=== PATIENT | male | born 1970 | race African-American/Black ===

== ENCOUNTER 2021-10-24 17:43 | Emergency (ER) | payer BC ==
--- OUTSIDE RECORDS SUMMARY | 2021-10-24 17:45 | XMS REPORT | Continuity of Care Document ---
:1970 Author Organization [facility] t Address [address] [place] [address] Care Team Providers Name Role Phone Unavailable Unavailable Unavailable Payers Payer Name Policy Type Policy Number Effective Date Expiration Date S ource Problems This patient has no known problems. Allergies, Adverse Reactions, Alerts Allergy Allergy Status Severity Reaction(s) Onset Inactive Treating Comm ents Source Name Type Date Date Clinician No Known DA Active U 2019-10 [facility] Allergie 11-23 [facility] s 00:00: d 00 [facility] No Known DA Active U 2019-10 [facility] Allergie 11-23 [facility] s 00:00: d 00 [facility] Medications This patient has no known medications. Procedures This patient has no known procedures. Encounters Start End Encounter Admission Attending Care Care Encounter Source Date/Time Date/Time Type Type Clinicians Facility Department ID 2020-09-22 Inpatient [facility] DOC [id number] [facility] 15:39:[id number] [facility] Results Test Description Test Time Test Comments Results Result Comments Source C REACTIVE PROTEIN 2020-10-05 03:39:00 Test Item Value Reference Range Interpretation Comme nts C REACTIVE PROTEIN (test code = CRP) 0.562 MG/DL 0.000-0.3 H ANTINUCLEAR ANTIBODIES [id number] 03:39:00 Test Item Value Reference Range Interpretation Comments LAVERNE TITER (test code NEGATIVE REFEREN CE INTERVAL = ANATITR) NEGATIVE <1:80BORDERLINE 1:80POSITIVE >1:80 C REACTIVE [id number] 17:41:00 Test Item Value Reference Range Interpretation Comments C REACTIVE PROTEIN (test code = 0.562 MG/DL 0.000-0.3 H CRP) ANTINUCLEAR ANTIBODIES [id number] 17:41:00 Test Item Value Reference Range Interpretation Comments LAVERNE TITER (test code = ANATITR) C REACTIVE [id number] 18:10:00 Test Item Value Reference Range Interpretation Comments C REACTIVE PROTEIN (test code = 0.562 MG/DL 0.000-0.3 H CRP) ANTINUCLEAR ANTIBODIES [id number] 18:10:00 Test Item Value Reference Range Interpretation Comments LAVERNE TITER (test code = ANATITR) LAVERNE COMMENT (test code = ANACOM) - CT HEAD/BRAIN W/O [id number] 11:06:00 [facility] 1970 Sex: M Name: ABRAHAN OSPINA [facility] : 1970 Age/S: 50 / M [address] [facility] Unit #: [id number] Loc: [place] [address] Phys: Destiney Joseph MD Acct: [id number] Dis Date: Status: ADM IN PHONE #: [phone] Exam Date: 09/24/2020 1045 FAX #: Reason: REPEAT AFTER STROKE EXAMS: CPT: [id number] CT HEAD/BRAIN W/O CONT 68150 EXAM: CT Head without contrast Location code:S17 HISTORY: CVA COMPARISON: MRI brain 09/23/2020; CT study of 09/23/2020 reviewed TECHNIQUE: Multiple transaxial images of the brain were obtained without intravenous contrast using 5mm slices. CT imaging performed at this location utilizes radiation dose optimization techniques which include one or more of the following: -Automated exposure control -Adjustment of the mA and/or kV according to patient size -Use of iterative reconstruction technique CT Radi ation Dose DLP 804 mGy-cm FINDINGS: Again noted are areas of low attenuation involvingthe right temporal, parietal, and frontal lobes.. Hypoattenuation is noted within the right parietal lobe in the infarcted region. There is no mass, mass effect, midline shift or extra- axial fluid collection.Brain parenchymal volume and ventricular caliber are within normal limits. Styles-white differentiation is maintained. Paranasal sinuses, mastoid air cells and visualized orbital contents are within normal limits. Osseous structures are within normal limits. IMPRESSION: Stable evolving infarct of the right temporal, parietal, and frontal lobes with an area of petechial hemorrhage centered at the latia-insular temporal lobe. There is no interval change. at 1106 Reported and signed by: Aryan Laurent M.D. CC: Destiney Joseph MD; Fide Cueto MD; Wilman Torres MD Technologist:Torri Hussein RT(R)(CT) CTDI: DLP: Trnscb Date/Time: 09/24/2020 (1106) [email or web address] Orig Print D/T: S: 09/24/2020 (7080) PAGE 1 Signed Report SED [id number] 23:42:00 Test Item Value Reference Range Interpretation Comments SED RATE (test code = SEDW) 62 mm/hr 0-20 H - CT HEAD/BRAIN W/O [id number] 23:36:00 [facility] 1970 Sex: M Name: [facility] 1970 Age/S: 50 / M [address] Unit #: [id number] Loc: [place] [address] Phys: Roger Schumacher MD Acct: [id number] Dis Date: Status: ADM IN PHONE #: [phone] Exam Date: 09/23/2020 2787 FAX #: Reason: stroke EXAMS: CPT: [id number] CT HEAD/BRAIN W/O CONT 35263 EXAM: CT Head without contrast Location code:J9 HISTORY: CVA COMPARISON: MRI brain 09/23/2020 TECHNIQUE: Multiple transaxial images of the brain were obtained without intravenous contrast using 5mm slices. CT imaging performed at this location utilizes radiation dose optimization techniques which include one or more of the following: -Automated exposure control -Adjustment of the mA and/or kV according to patientsize -Use of iterative reconstruction technique CT Radiation Dose DLP mGy-cm FINDINGS: Again noted are areas of low attenuation involving the right temporal, parietal, and frontal lobes.. Hypoattenuation is noted within the right parietal lobe in the infarcted region. There is no mass, mass effect, midline shift or extra-axial fluid collection.Brain parenchymal volume and ventricular caliber are within normal limits. Paranasal sinuses,mastoid air cells and visualized orbital contents are within normal limits. Osseous structures are within normal limits. IMPRESSION: Again noted is an evolving infarct of the right temporal, parietal, and frontal lobes with an area of petechial hemorrhagecentered at the periinsular temporal lobe. Attention on follow-up. at 2336 Reported and signed by: Oleksandr Car M.D. CC: Fide Cueto MD; Roger Schumacher MD; Wilman Torres MD Technologist:Josiane Matias, RT(R)(CT) CTDI: DLP: Trnscb Date/Time: 09/23/2020 (4376) [email or web address] Orig Print D/T: S: 09/23/2020 (5611) PAGE 1 Signed Report- CT HEAD/BRAIN W/O [id number] 23:36:00 [facility] 1970 Sex: M Name: ABRAHAN OSPINA [facility] : 1970 Age/S: 50 / M [address] [address] Unit #: [id number] Loc: [place] [address] Phys: Roger Schumacher MD Acct: [id number] Dis Date: Status: ADM IN PHONE #: [phone] Exam Date: 09/23/2020 3826 FAX #: Reason: stroke EXAMS: CPT: [id number] CT HEAD/BRAIN W/O CONT 52500 EXAM: CT Head without contrast Location code:J9 HISTORY: CVA COMPARISON: MRI brain 09/23/2020 TECHNIQUE: Multiple transaxial images of the brain were obtained without intravenous contrast using 5mm slices. CT imaging performed at this location utilizes radiation dose optimization techniques which include one or more of the following: -Automated exposure control -Adjustment of the mA and/or kV according to patientsize -Use of iterative reconstruction technique CT Radiation Dose DLP mGy-cm FINDINGS: Again noted are areas of low attenuation involving the right temporal, parietal, and frontal lobes.. Hypoattenuation is noted within the right parietal lobe in the infarcted region. There is no mass, mass effect, midline shift or extra-axial fluid collection.Brain parenchymal volume and ventricular caliber are within normal limits. Paranasal sinuses,mastoid air cells and visualized orbital contents are within normal limits. Osseous structures are within normal limits. IMPRESSION: Again noted is an evolving infarct of the right temporal, parietal, and frontal lobes with an area of petechial hemorrhagecentered at the periinsular temporal lobe. Attention on follow-up. at 2336 Reported and signed by: Oleksandr Car M.D. CC: Fide Cueto MD; Roger Schumacher MD; Wilman Torres MD Technologist:Josiane Matias, RT(R)(CT) CTDI: DLP: Trnscb Date/Time: 09/23/2020 (5878) [email or web address] Orig Print D/T: S: 09/23/2020 (9869) PAGE 1 Signed ReportCBC W/AUTO [id number] 18:09:00 Test Item Value Reference Range Interpretation Comments WHITE BLOOD CELL (test code = 9.2 K/mm3 3.5-11.0 N WBC) RED BLOOD CELL (test code = 4.83 M/mm3 4.70-6.10 N RBC) HEMOGLOBIN (test code = HGB) 14.5 G/DL 12.3-15.9 N HEMATOCRIT (test code = HCT) 43.6 % 35.8-46.7 N MEAN CELL VOLUME (test code = 90.3 Fl 86.3-98.9 N MCV) MEAN CELL HGB (test code = MCH) 30.0 pg 28.9-34.4 N MEAN CELL HGB CONCETRATION 33.3 G/DL 32.1-34.5 N (test code = MCHC) RED CELL DISTRIBUTION WIDTH 12.8 SD 11.5-14.5 N (test code = RDW) PLATELET COUNT (test code = 282 K/mm3 150-450 N PLT) MEAN PLATELET VOLUME (test code 8.40 fL 7.0-9.6 N = MPV) NEUTROPHIL % (test code = NT%) 70.7 % 40-76 N IMMATURE GRANULOCYTE % (test 0.2 % 0.0-5.0 N code = IG%) LYMPHOCYTE % (test code = LY%) 20.6 % 20.5-51.1 N MONOCYTE % (test code = MO%) 7.9 % 1.7-9.3 N EOSINOPHIL % (test code = EO%) 0.4 % 0.0-6.0 N BASOPHIL % (test code = BA%) 0.2 % 0.0-2.0 N NUCLEATED RBC % (test code = 0.0 /100WBC% 0.0-1.0 N NRBC%) NEUTROPHIL # (test code = NT#) 6.5 K/mm3 1.8-7.6 N IMMATURE GRANULOCYTE # (test 0.02 x10 3/uL 0.00-0.03 N code = IG#) LYMPHOCYTE # (test code = LY#) 1.9 K/mm3 0.6-3.0 N MONOCYTE # (test code = MO#) 0.7 K/mm3 0.2-1.5 N EOSINOPHIL # (test code = EO#) 0.0 K/mm3 0.0-0.4 N BASOPHIL # (test code = BA#) 0.0 K/mm3 0.0-0.2 N NUCLEATED RBC # (test code = 0.0 K/mm3 0.00-0.01 N NRBC#) MANUAL DIFF REQUIRED (test code NO DIFF/SCN CRITERIA = MDIFF) GLYCOSYLATED HEMOGLOBIN [id number] 15:53:00 Test Item Value Reference Range Interpretation Comments GLYCOSYLATED HEMOGLOBIN (HA1C) 5.8 % A1C 0.0-5.7 H (test code = GLYHGB) ESTIMATED AVERAGE GLUCOSE (test 120 MG/DLest code = EAG) BASIC METABOLIC [id number] 12:00:00 Test Item Value Reference Range Interpretation Comments SODIUM (test code = NA) 137 mmol/L 134-147 N POTASSIUM (test code = 4.0 mmol/L 3.4-5.0 N K) CHLORIDE (test code = 102 mmol/L 100-108 N CL) CARBON DIOXIDE (test 29 mmol/L 21-32 N code = CO2) ANION GAP (test code = 6.0 GAP calc 4.0-15.0 N GAP) GLUCOSE (test code = 101 MG/DL 70-110 N GLU) BLOOD UREA NITROGEN 15 MG/DL 7-18 N (test code = BUN) GLOMERULAR FILTRATION >=60 max estimate >60 RATE (test code = GFR) estGFR CREATININE (test code = 0.9 MG/DL 0.8-1.3 N CREAT) CALCIUM (test code = CA) 9.0 MG/DL 8.5-10.1 N LIPID PROFILE (CORONARY RISK)2020-09-23 12:00:00 Test Item Value Reference Range Interpretation Comments TRIGLYCERIDES (test code = TRIG) 111 MG/DL 0-150 N CHOLESTEROL (test code = CHOL) 225 MG/DL 133-200 H CHOLESTEROL/HDL RATIO (test code = 4.41 RATIO >0 CHOLHDL) HDL CHOLESTEROL (test code = HDL) 51 MG/DL 40-59 N NON-HDL CHOLESTEROL (test code = 174 mg/dL <130 H NHDL) LIPOPROTEIN LDL (test code = LDL) 157 MG/DL 0-129 H LDL/HDL (test code = LDL/HDL) 3.07 Ratio 1.48-3.22 Avg N [id number] 12:00:00 Test Item Value Reference Range Interpretation Comments PHOSPHOROUS (test code = PHOS) 3.1 MG/DL 2.5-4.9 N [id number] 12:00:00 Test Item Value Reference Range Interpretation Comments MAGNESIUM (test code = MAG) 2.3 MG/DL 1.8-2.4 N - MRI BRAIN W/O [id number] 10:25:00 [facility] : 1970 Sex: M FAX: [place] [phone] Camps: PM St: ADM FAX: Brittany Torres MD [phone] Name: ABRAHAN OSPINA [facility] : 1970 Age/S: 50/M [address] [address] Unit #: [id number] Loc: [address] [place] [address] Phys: Wilman Torres MD Acct: [id number] Dis Date: Status: ADM IN PHONE #: [phone] Exam Date: 09/23/2020 0982 FAX #: Reason: CVA EXAMS: CPT: [id number] MRI BRAIN W/O CONTRAST 58688 HISTORY: CVA Location: C3 TECHNIQUE: Multiplanar multisequence MR images of thebrain were obtained without intravenous contrast. FINDINGS: There are areas of restricted diffusion compatible with acute infarction involving the right parietal lobe aswell as posterior right temporal lobe and posterior insula with tiny area of recent infarction involving the left cerebellum. There are areas of petechial hemorrhage seen involving the acute infarction in the region of the posterior insula and adjacent cortex. There is no intracranial mass or mass effect. No hydrocephalus. Appropriate flow-voids are present at the skull base. The visualized orbits and sinuses show no significant abnormalities. IMPRESSION: 1. Recent infarction involving the right parietal lobe as well as posterior temporal lobe and posterior insula with tiny area of recent infarction involving the right cerebellum. There are small areas of petechial hemorrhage seen withinthe area of infarction in the region of the posterior insula and adjacent cortex. at 1025 Reported and signed by: Dima Howard M.D. CC:Fide Cueto MD; Wilman Torres MD Technologist: Gulshan Charles, RT(R)(MR) Transcribed Date/Time/By: 09/23/2020 (7805) :[email or web address] Orig Print D/T: S: 09/23/2020 (2239) PAGE 1 Signed ReportGLUCOSE BEDSIDE [id number] 08:02:00 Test Item Value Reference Range Interpretation Comments GLUCOSE BEDSIDE TESTING (test code 108 mg/dL 70-110 N = GLUBED) UA RFLX MICR CULT IF [id number] 08:01:00 Test Item Value Reference Range Interpretation Comments UA COLOR (test code = YELLOW discript YEL/STRAW COLU) UA APPEARANCE (test code CLEAR discript CLEAR = APPU) UA GLUCOSE DIPSTICK (test NEGATIVE mg/dL NEG code = DGLUU) UA BILIRUBIN DIPSTICK NEGATIVE mg/dL NEG (test code = BILU) UA KETONE DIPSTICK (test NEGATIVE mg/dL NEG code = KETU) UA SPECIFIC GRAVITY (test 1.015 SG 1.005-1.030 code = SGU) UA BLOOD DIPSTICK (test 2+ mg/DL NEG A code = PHI) UA PH DIPSTICK (test code 6.5 pH UNITS 5.0-7.0 = RIAZ) UA PROTEIN DIPSTICK (test NEGATIVE mg/dL NEG code = PROU) UA UROBILINIOGEN DIPSTICK 0.2 mg/dL <2.0 (test code = URO) UA NITRITE DIPSTICK (test NEGATIVE SCREEN NEG code = CHRIS) UA LEUKOCYTE ESTERASE NEGATIVE Leuk/mcL NEGATIVE DIPSTICK (test code = LEUU) UA WBC (test code = WBCU) 0-1 #WBC/HPF 0-3 UA RBC (test code = RBCU) 1-3 #RBC/HPF 0-3 UA BACTERIA (test code = NONE SEEN /HPF NONE-TRACE BACU) UA SQUAMOUS CELLS (test TRACE /HPF NONE code = SQU) UA CULTURE NEEDED? (test NO, WBC<10 Criteria Culture CHK code = UACULT) Indication for culture: Suprapubic PainUA RFLX MICR CULT IF INDICATED 2020-09-23 07:49:00 Test Item Value Reference Range Interpretation Comments UA COLOR (test code = COLU) YELLOW discript YEL/STRAW UA APPEARANCE (test code = CLEAR discript CLEAR APPU) UA GLUCOSE DIPSTICK (test NEGATIVE mg/dL NEG code = DGLUU) UA BILIRUBIN DIPSTICK (test NEGATIVE mg/dL NEG code = BILU) UA KETONE DIPSTICK (test NEGATIVE mg/dL NEG code = KETU) UA SPECIFIC GRAVITY (test 1.015 SG 1.005-1.030 code = SGU) UA BLOOD DIPSTICK (test 2+ mg/DL NEG A code = PHI) UA PH DIPSTICK (test code = 6.5 pH UNITS 5.0-7.0 RIAZ) UA PROTEIN DIPSTICK (test NEGATIVE mg/dL NEG code = PROU) UA UROBILINIOGEN DIPSTICK 0.2 mg/dL <2.0 (test code = URO) UA NITRITE DIPSTICK (test NEGATIVE SCREEN NEG code = CHRIS) UA LEUKOCYTE ESTERASE NEGATIVE Leuk/mcL NEGATIVE DIPSTICK (test code = LEUU) UA CULTURE NEEDED? (test Criteria Culture CHK code = UACULT) Indication for culture: Suprapubic PainCOVID 19 INHOUSE [id number] 18:19:00 Test Item Value Reference Range Interpretation Comments COVID 19 INHOUSE AG NEGATIVE Negative Per manu facturer, (test code = negative result s should [id number]) be treated aspr esumptive and, if inconsi stent with clinical signs andsymptoms or necessary for patient man agement, should betested with an alternative mol ecular assay. Negative resultsdo not preclude SA RS-CoV-2 infection and s hould not be usedas the s ole basis for patient man agement decisions. Neg ative results should be considered in t he context of apatient's r ecent exposures, hist ory, presence of cli nicalsigns and symptoms co nsistent with COVID-19. - XR CHEST 1 [id number] 17:13:00 [facility] 1970 Sex: M Name: ABRAHAN OSPINA [facility] : 1970 Age/S: 50 / M [address] [address] Unit #: [id number] Loc: [place] [address] Phys: Hue Levy MD Acct: [id number] Dis Date: Status: ADM IN PHONE #: [phone] Exam Date: 09/22/2020 0548 FAX #: Reason: Code Stroke EXAMS: CPT: [id number] XR CHEST 1 V 30331 Fluoro Time: DAP (Gy m2): Air Kerma (mGy): Site ID: [id number] HISTORY: Code stroke, CVA FINDINGS: The lungs are clear and normally expanded. The heart and pulmonary vasculature is normal. Osseous structures are unremarkable. IMPRESSION: Negative chest X-ray. at 1713 Reported and signed by:Kimani Wall M.D. CC: Hue Levy MD PAGE 1 Signed Report Name: DEB OSPINA [place] : 1970 Age/S: 50 / M [address] [address] Unit #: [id number] Loc: [place] [address] Phys: Hue Levy MD Acct: [id number] Dis Date: Status: ADM IN PHONE #: [phone] Exam Date: 09/22/2020 1705 FAX #: Reason: Code StrokeEXAMS: CPT: [id number] XR CHEST 1 V 97807 Fluoro Time: DAP (Gy m2): Air Kerma (mGy): <Continued> Technologist: Dena Galicia RT(R)(CT) Trnscb Date/Time: 09/22/2020 (1713) [email or web address].[id number] Orig Print D/T: S: 09/22/2020 (4775) PAGE 2 Signed ReportGLUCOSE BEDSIDE [id number] 17:10:00 Test Item Value Reference Range Interpretation Comments GLUCOSE BEDSIDE TESTING (test code 134 mg/dL 70-110 H = GLUBED) - CT ANGIO [id number] 16:36:00 [facility] 1970 Sex: M Name: JOCELYN OSPINA [place] : 1970 Age/S: 50 / M [address] [address] Unit #: [id number] Loc: [place] [address] Phys: Hue Levy MD Acct: [id number] Dis Date: Status: PRE ER PHONE #: [phone] Exam Date: 09/22/2020 160 FAX #: Reason: L weakness EXAMS: CPT: [id number] CT ANGIO NECK 68759 Indication: L weakness TECHNIQUE: Contrast enhanced axial spiral CT images of the headand neck were obtained using the angiography protocol with multiple reconstructions performed. Maximum intensity projection images were also viewed in multiple projections. CONTRAST: 100 ml of Isovue administered intravenously. LOCATION: S17CT DLP dose: 1026mGy cm; Iterative dose reduction technique was utilized. COMPARISON: None available. CTA NECK FINDINGS: The origins of the great vesselsare patent.. The origin of the common carotid arteries appear to be widely patent. The originsof the vertebral arteries also appear to be widely patent. The bilateral common carotid arteries are patent. The bilateral common carotid, internal carotid and external carotid arteries are widely patent with no flow-limiting stenosis or dissection. There are tortuous hairpin curve is within the proximal bilateral common carotid arteries. Bilateral vertebral arteries are widely patent. There is no evidence of arterial dissection, occlusion, or pseudoaneurysm the lung apices are clear. The orbits, paranasal sinuses and mastoid air cells are normal. The posterior nasopharynx, oropharynx, tongue, tongue base and hypopharynx are normal. The epiglottis is unremarkable. The aryepiglottic folds, vallecula and larynx are normal. The trachea is normal. The parotid glands are normal. The submandibular glands are also normal. Mild degenerative changes are seen in the cervical spine. The prevertebral soft tissues are otherwise normal. CTA HEAD FINDINGS: PAGE 1 Signed Report (CONTINUED) Name: JOCELYN OSPINA [place] : 1970 Age/S: 50 / M [address] [address] Unit #: [id number] Loc: [place] [address] Phys: Hue Levy MD Acct: [id number] Dis Date: Status: PRE ER PHONE #: [phone] Exam Date: 09/22/2020 1604 FAX #: Reason: L weakness EXAMS: CPT: [id number] CT ANGIO NECK 28779 <Continued> The intracranial carotid arteries, carotid bifurcations, anterior, middle and posterior cerebral arteries, anterior communicating artery, posterior communicating arteries and posterior circulation are unremarkable. There is no evidence of an aneurysm. There is no evidence of an arteriovenous malformation. No significant stenosis is seen. There is no evidence of arterial occlusion. The venous structures are unremarkable. There is no evidence of venous o cclusion. The calvarium and skull base are normal. No calvarial or skull base fracture is seen. No osseous lesion is identified. Low-density changes within the right parietal lobe again seen. No suspicious parenchymal enhancement is seen. The extracranial soft tissues are unrema rkable. The visualized paranasal sinuses are clear. IMPRESSIONS: 1. There is no flow-limiting stenosis of the carotid system using NASCET criteria. 2. Normal variant [place] with no flow-limiting stenosis, aneurysm or AVM. 3. Low-density demarcation of the right anterior parietal lobe near the frontoparietal vertex corresponding to the region of evolving ischemic infarct. Emergent imaging findings reviewed with Dr. Levy by telephone at 4:18 PM. at 1636 Reported and signed by: Aryan Laurent M.D. CC: Hue Levy MD Technologist:RT Nina(R)(CT); Kristopher CTDI: DLP: Trnscb Date/Time: 09/22/2020 (163) [id number] Orig Print D/T: S: 09/22/2020 (8776) PAGE 2 Signed Report- CT ANGIO HEAD 2020-09-22 16:36:00 [facility] 1970 Sex: M Name: JOCELYN OSPINA [place] : 1970 Age/S: 50 / M [address] [address] Unit #: [id number] Loc: [place] [address] Phys: Hue Levy MD Acct: [id number] Dis Date: Status: PRE ER PHONE #: [phone] Exam Date: 09/22/2020 1602 FAX #: Reason: L weakness EXAMS: CPT: [id number] CT ANGIO HEAD 20358 Indication: L weakness TECHNIQUE: Contrast enhanced axial spiral CT images of the headand neck were obtained using the angiography protocol with multiple reconstructions performed. Maximum intensity projection images were also viewed in multiple projections. CONTRAST: 100 ml of Isovue administered intravenously. LOCATION: S17CT DLP dose: 1026mGy cm; Iterative dose reduction technique was utilized. COMPARISON: None available. CTA NECK FINDINGS: The origins of the great vesselsare patent.. The origin of the common carotid arteries appear to be widely patent. The originsof the vertebral arteries also appear to be widely patent. The bilateral common carotid arteries are patent. The bilateral common carotid, internal carotid and external carotid arteries are widely patent with no flow-limiting stenosis or dissection. There are tortuous hairpin curve is within the proximal bilateral common carotid arteries. Bilateral vertebral arteries are widely patent. There is no evidence of arterial dissection, occlusion, or pseudoaneurysm the lung apices are clear. The orbits, paranasal sinuses and mastoid air cells are normal. The posterior nasopharynx, oropharynx, tongue, tongue base and hypopharynx are normal. The epiglottis is unremarkable. The aryepiglottic folds, vallecula and larynx are normal. The trachea is normal. The parotid glands are normal. The submandibular glands are also normal. Mild degenerative changes are seen in the cervical spine. The prevertebral soft tissues are otherwise normal. CTA HEAD FINDINGS: PAGE 1 Signed Report (CONTINUED) Name: JOCELYN OSPINA [place] : 1970 Age/S: 50 / M [address] [facility] [address] Unit #: [id number] Loc: [place] [address] Phys: Hue Levy MD Acct: [id number] Dis Date: Status: PRE ER PHONE #: [phone] Exam Date: 09/22/2020 1609 FAX #: Reason: L weakness EXAMS: CPT: [id number] CT ANGIO HEAD 11550 <Continued> The intracranial carotid arteries, carotid bifurcations, anterior, middle and posterior cerebral arteries, anterior communicating artery, posterior communicating arteries and posterior circulation are unremarkable. There is no evidence of an aneurysm. There is no evidence of an arteriovenous malformation. No significant stenosis is seen. There is no evidence of arterial occlusion. The venous structures are unremarkable. There is no evidence of venous o cclusion. The calvarium and skull base are normal. No calvarial or skull base fracture is seen. No osseous lesion is identified. Low-density changes within the right parietal lobe again seen. No suspicious parenchymal enhancement is seen. The extracranial soft tissues are unrema rkable. The visualized paranasal sinuses are clear. IMPRESSIONS: 1. There is no flow-limiting stenosis of the carotid system using NASCET criteria. 2. Normal variant [place] with no flow-limiting stenosis, aneurysm or AVM. 3. Low-density demarcation of the right anterior parietal lobe near the frontoparietal vertex corresponding to the region of evolving ischemic infarct. Emergent imaging findings reviewed with Dr. Levy by telephone at 4:18 PM. at 1636 Reported and signed by: Aryan Laurent M.D. CC: Hue Levy MD Technologist:Ju Lucio RT(R)(CT); Kristopher CTDI: DLP: Trnscb Date/Time: 09/22/2020 (1636) [email or web address] Orig Print D/T: S: 09/22/2020 (0069) PAGE 2 Signed ReportBASIC METABOLIC [id number] 16:31:00 Test Item Value Reference Range Interpretation Comments SODIUM (test code = NA) 136 mmol/L 134-147 N POTASSIUM (test code = 3.6 mmol/L 3.4-5.0 N K) CHLORIDE (test code = 103 mmol/L 100-108 N CL) CARBON DIOXIDE (test 25 mmol/L 21-32 N code = CO2) ANION GAP (test code = 8.0 GAP calc 4.0-15.0 N GAP) GLUCOSE (test code = 149 MG/DL 70-110 H GLU) BLOOD UREA NITROGEN 16 MG/DL 7-18 N (test code = BUN) GLOMERULAR FILTRATION >=60 max estimate >60 RATE (test code = GFR) estGFR CREATININE (test code = 0.9 MG/DL 0.8-1.3 N CREAT) CALCIUM (test code = CA) 9.1 MG/DL 8.5-10.1 N Completed by Nursing: [id number] 16:31:00 Test Item Value Reference Range Interpretation Comments TROPONIN-I (test < 0.015 NG/ML 0.000-0.045 N Negative: </= 0.045 code = TROPI) Positive: >/= 0.046 Correlation wit h serial results, other cardiac markers, and cl inical findings is nec essary to determine the c linical significance of this result. Quantit ative results using d ifferent methodologies s hould not be compared to one another as nume rical results may [place] yby method. Completed by Nursing: NOPROTHROMBIN [id number] 16:24:00 Test Item Value Reference Range Interpretation Comments PT PATIENT (test code = PTP) 12.4 SECONDS 9.3-12.9 N INTERNATIONAL NORMAL RATIO 1.10 INR Unit 0.8-1.2 N (test code = INR) THROMBOPLASTIN TIME [id number] 16:24:00 Test Item Value Reference Range Interpretation Comments THROMBOPLASTIN TIME PARTIAL 28.9 SECONDS 26-35 N (test code = PTT) CBC W/O [id number] 16:08:00 Test Item Value Reference Range Interpretation Comments WHITE BLOOD CELL (test code = WBC) 10.2 K/mm3 3.5-11.0 N RED BLOOD CELL (test code = RBC) 5.09 M/mm3 4.70-6.10 N HEMOGLOBIN (test code = HGB) 15.3 G/DL 12.3-15.9 N HEMATOCRIT (test code = HCT) 46.0 % 35.8-46.7 N MEAN CELL VOLUME (test code = MCV) 90.4 Fl 86.3-98.9 N MEAN CELL HGB (test code = MCH) 30.1 pg 28.9-34.4 N MEAN CELL HGB CONCETRATION (test 33.3 G/DL 32.1-34.5 N code = MCHC) RED CELL DISTRIBUTION WIDTH (test 12.6 SD 11.5-14.5 N code = RDW) PLATELET COUNT (test code = PLT) 308 K/mm3 150-450 N MEAN PLATELET VOLUME (test code = 8.60 fL 7.0-9.6 N MPV) - CT HEAD/BRAIN W/O [id number] 16:07:00 [facility] 1970 Sex: M Name: JOCELYN OSPINA [facility] : 1970 Age/S: 50 / M [address] [facility] Unit #: [id number] Loc: [place] [address] Phys: Hue Levy MD Acct: [id number] Dis Date: Status: PRE ER PHONE #: [phone] Exam Date: 09/22/2020 1550 FAX #: Reason: Code Stroke EXAMS: CPT: [id number] CT HEAD/BRAIN W/O CONT 67975 CT HEAD WITHOUT CONTRAST CLINICAL HISTORY: Code Stroke COMPARISON: None available. TECHNIQUE: 5 mm axial images of the brain were obtained without contrast. Coronal and sagittal reformats were obtained. One or more of thefollowing dose reduction techniques were used: Automated exposure control, adjustment of the mA and/or kV according to patient size, and/or utilization of iterative reconstruction technique. FINDINGS: Loss of the styles-white matter differentiation and parenchymal hypodensity are noted in the right frontoparietal and temporal lobes. A linear hyperdense MCA branch is visible. No acute intracranial hemorrhage is identified. There is no mass effect or midline shift. The ventricles are normal in size. The cranial vault and skull base are intact. The paranasal sinuses and mastoid air cells are pneumatized and well-aerated. IMPRESSION: Acute ischemia is noted in the right frontoparietal temporal cortex. CT follow-up is suggested. Finding was communicated to Dr. Levy at 1559 hours on 09/22/2020. Location: R16 at 1607 Reported and signed by: Franklyn Noel M.D. PAGE 1 Signed Report (CONTINUED) Name: JOCELYN OSPINA [place] : 1970 Age/S: 50 / M [address] [address] Unit #: [id number] Loc: [place] [address] Phys: Hue Levy MD Acct: [id number] Dis Date: Status: PRE ER PHONE #: [phone] Exam Date: 09/22/2020 4557 FAX #: Reason: Code StrokeEXAMS: CPT: [id number] CT HEAD/BRAIN W/O CONT 63023 <Continued> CC: Hue Levy MD Technologist:Ju Lucio RT(R)(CT); Chin CTDI: DLP: Trnscb Date/Time: 09/22/2020 (1607) [id number] Orig Print D/T: S: 09/22/2020 (6600) PAGE 2 Signed Report
[2021-10-24] MEDS ORDERED: ONDANSETRON 4 MG/2 ML VIAL ONE (18:41)
[2021-10-24] MEDS ORDERED: ONDANSETRON 4 MG/2 ML VIAL IV ONE (18:51)
[2021-10-24 18:54] LABS: Absolute Lymphocytes (CBC) 1.7 K/uL (0.7-4.9); Hematocrit 45.2 % (39.6-49.0); Lymphocytes % 14.6 % (15.3-44.8); MPV 6.8 fL (7.6-11.3)
[2021-10-24 18:58] LABS: Protime INR 1.01
[2021-10-24 19:15] LABS: CKMB Creatine Kinase MB 2.1 ng/mL (1.0-3.6); Magnesium 3.3 mg/dL (1.8-2.4); Potassium 3.4 mmol/L (3.5-5.1); Troponin High Sensitivity 5.1 pg/mL (<58.9)
--- NOTE | 2021-10-24 19:35 | RAD REPORT ---
EXAM DESCRIPTION: CT - Head Brain Wo Cont - 10/24/2021 7:27 pm CLINICAL HISTORY: possible seizure COMPARISON: No comparisons TECHNIQUE: All CT scans are performed using dose optimization technique as appropriate and may inclu de automated exposure control or mA/KV adjustment according to patient size. FINDINGS: No intracranial hemorrhage, hydrocephalus or extra-axial fluid collection.Remote appearing moderate sized right posterior frontal parietal infarct. The paranasal sinuses and mastoids are clear. The calvarium is intact. IMPRESSION: No definite acute intracranial abnormality. Chronic appearing moderate-sized right poste rior frontal/parietal lobe infarct. MRI is more sensitive for acute ischemia.
--- NOTE | 2021-10-24 22:13 | RAD REPORT ---
EXAM DESCRIPTION: RAD - Chest Single View - 10/24/2021 10:04 pm CLINICAL HISTORY: syncope COMPARISON: <Comparisons> FINDINGS: Lines: None. Lungs: Left lung base is partially obscured. The right lung is clear. Pleural: No significant pleural effusions or pneumothorax. Cardiac: The heart size is within normal limits. Bones: No acute fractures. Other: IMPRESSION: Partially obscured left lung base could be secondary to atelectasis, effusion, and/or ai rspace disease .
--- NOTE | 2021-10-25 00:53 | EDPHYS ---
Physician Documentation [facility] Name: Jovanny Long Age: 51 yrs Sex: Male : 1970 Arrival Date: 10/24/2021 Time: 22:54 Bed 16 Private MD: VANCE Physician Riley Fan HPI: 10/24 21:18 This 51 yrs old Black Male presents to ER via Unassigned with complaints of Possible mh7 seizure. Generalized weakness. 21:18 The patient presents after having a single isolated seizure, that lasted 3 minute(s). mh7 Character of seizure(s): Loss of consciousness: the patient experienced loss of consciousness, during seizure(s), Motor activity: generalized, shaking all over, Incontinence: none, Apnea: the patient did not experience apnea, Circulation: the patient did not experience evidence of pulse disturbance, Eye movements: are unknown. Seizure onset: today, at 17:00. Context: the seizure(s) was witnessed, by family, son, , occurred at home, occurred while the patient was standing, Contributing factors: unknown. Seizure Hx: the patient has no previous seizure history. Associated injury: The patient did not suffer any apparent associated injury. Patient started having cramping to hands then he had possible seizure-like activity according to . Patient had been feeling well prior to episode without any complaints earlier in the day. Denies any headache, chest pain, abdominal pain, fever, cough, shortness of breath, diarrhea, dizziness, numbness/tingling, or weakness. He did have some nausea and vomiting x2.. ROS: 21:18 Constitutional: Negative for fever, chills, and weight loss, Eyes: Negative for injury, mh7 pain, redness, and discharge, ENT: Negative for injury, pain, and discharge, Neck: Negative for injury, pain, and swelling, Cardiovascular: Negative for chest pain, palpitations, and edema, Respiratory: Negative for shortness of breath, cough, wheezing, and pleuritic chest pain. 21:18 Back: Negative for injury and pain, : Negative for injury, bleeding, discharge, and swelling, MS/Extremity: Negative for injury and deformity, Skin: Negative for injury, rash, and discoloration, Psych: Negative for depression, anxiety, suicide ideation, homicidal ideation, and hallucinations, Allergy/Immunology: Negative for hives, rash, and allergies, Endocrine: Negative for neck swelling, polydipsia, polyuria, polyphagia, and marked weight changes. 21:18 Abdomen/GI: Negative for abdominal pain, diarrhea, constipation, abdominal cramps, abdominal distension, anorexia, dysphagia, hematemesis, black/tarry stool, rectal pain, rectal bleeding, bowel incontinence, flatulence. Exam: 21:18 Constitutional: This is a well developed, well nourished patient who is awake, alert, mh7 and in no acute distress. Head/Face: Normocephalic, atraumatic. Eyes: Pupils equal round and reactive to light, extra-ocular motions intact. Lids and lashes normal. Conjunctiva and sclera are non-icteric and not injected. Cornea within normal limits. Periorbital areas with no swelling, redness, or edema. Neck: Trachea midline, no thyromegaly or masses palpated, and no cervical lymphadenopathy. Supple, full range of motion without nuchal rigidity, or vertebral point tenderness. No Meningismus. Chest/axilla: Normal chest wall appearance and motion. Nontender with no deformity. No lesions are appreciated. Cardiovascular: Regular rate and rhythm with a normal S1 and S2. No gallops, murmurs, or rubs. Normal PMI, no JVD. No pulse deficits. Respiratory: Lungs have equal breath sounds bilaterally, clear to auscultation and percussion. No rales, rhonchi or wheezes noted. No increased work of breathing, no retractions or nasal flaring. Abdomen/GI: Soft, non-tender, with normal bowel sounds. No distension or tympany. No guarding or rebound. No evidence of tenderness throughout. Back: No spinal tenderness. No costovertebral tenderness. Full range of motion. Skin: Warm, dry with normal turgor. Normal color with no rashes, no lesions, and no evidence of cellulitis. MS/ Extremity: Pulses equal, no cyanosis. Neurovascular intact. Full, normal range of motion. Psych: Awake, alert, with orientation to person, place and time. Behavior, mood, and affect are within normal limits. 21:18 Neuro: Orientation: is normal, Mentation: is normal, Memory: is normal, Cranial nerves: grossly normal, Cerebellar function: is grossly normal, Motor: is normal, Sensation: is normal, Gait: not tested. Deep tendon reflexes are normal, Babinski testing is normal, seizure activity, is not displayed by the patient, Abnormal movements: there are no abnormal movements. Vital Signs: 10/25 01:00 BP 105 / 68 RA Supine (auto/reg); Pulse 58 MON; Resp 16 S; Temp 98.1; Pulse Ox 97% on tk1 R/A; Pain 0/10; 01:00 Sinus bradycardia tk1 MDM: 00:49 Differential diagnosis: cerebral vascular accident, drug overdose, cardiac arrhythmia, mh7 seizure, TIA. Data reviewed: vital signs, nurses notes, EMS record, lab test result(s), cardiac enzymes, CBC, electrolytes, EKG, radiologic studies, CT scan, plain films. Data interpreted: Pulse oximetry: on room air is 100 %. Interpretation: normal. Counseling: I had a detailed discussion with the patient and/or guardian regarding: the historical points, exam findings, and any diagnostic results supporting the discharge/admit diagnosis, lab results, radiology results, the need for outpatient follow up, a neurologist, to return to the emergency department if symptoms worsen or persist or if there are any questions or concerns that arise at home. Response to treatment: the patient's symptoms have resolved after treatment, the patient's blood pressure is in an acceptable range, mental status has returned to baseline, the patient no longer shows bradycardia, the patient is not short of breath, the patient is not tachycardic, the patient's pain is gone, the patient's temperature has normalized, the patient is now symptom free, patient is well hydrated. 00:49 ED course: Feels better, no acute distress, vital signs stable, no focal neurologic 7 deficits. No seizure activity, nausea, vomiting or other complaints while in the ED. Discussed all test results and findings and answered all questions. Patient is ready for discharge. We will follow-up with his primary doctor and will provide information for neurology follow-up. Explained to return to ED if return of symptoms or other urgent concerns.. 00:52 Patient medically screened. mh7 10/24 22:54 Order name: CBC with Automated Diff; Complete Time: 23:22 EDMS 10/24 22:54 Order name: Protime (+INR); Complete Time: 23:22 EDMS 10/24 22:54 Order name: PTT, Activated Partial Thromb; Complete Time: 23:22 EDMS 10/24 22:54 Order name: Basic Metabolic Panel; Complete Time: 23:22 EDMS 10/24 22:54 Order name: Creatine Phosphokinase; Complete Time: 23:22 EDMS 10/24 22:54 Order name: CKMB Creatine Kinase MB; Complete Time: 23:22 EDMS 10/24 22:54 Order name: Troponin High Sensitivity; Complete Time: 23:22 EDMS 10/24 22:54 Order name: NT PRO-BNP; Complete Time: 23:22 EDMS 10/24 22:54 Order name: Magnesium; Complete Time: 23:22 EDMS 10/24 22:54 Order name: CORONAVIRUS EDDE 10/24 22:54 Order name: SARS-COV-2 RT PCR; Complete Time: 23: EDMS 10/24 22:54 Order name: CT; Complete Time: 23: EDMS 10/24 22:54 Order name: RAD; Complete Time: 23:22 EDMS 10/24 23:23 Order name: CT Chest For PE Angio [facility] Administered Medications: No medications were administered Disposition Summary: 10/25/21 00:52 Discharge Ordered Location: Home [facility] Problem: new [facility] Symptoms: have improved [facility] Condition: Stable [facility] Diagnosis - Other seizures - Possible [facility] - Coronavirus infection, unspecified [facility] Followup: [facility] - With: Private Physician - When: 1 - 2 days - Reason: Worsening of condition, Recheck today's complaints, Continuance of care, Re-evaluation by your physician Followup: [facility] - With: Vijay Rasmussen MD - When: 1 - 2 days - Reason: Worsening of condition, Further diagnostic work-up, Recheck today's complaints Discharge Instructions: - Discharge Summary Sheet [facility] - Seizure, Adult, [id number] [facility] - COVID-19 [facility] - COVID-19 Frequently Asked Questions [facility] - 10 Things You Can Do to Manage Your COVID-19 Symptoms at Home - [place] [address] - COVID-19: Quarantine vs. Isolation - [place] [address] Forms: - Medication Reconciliation Form [facility] - Thank You Letter 7 - Antibiotic Education [facility] - Prescription Opioid Use [facility] Prescriptions: - albuterol sulfate 90 mcg/actuation Inhalation HFA aerosol inhaler - inhale 1 puff by INHALATION route every 4-6 hours As needed; 1 Inhaler; [facility] Refills: 0, Product Selection Permitted - ondansetron 4 mg Oral tablet,disintegrating - place 1 tablet by TRANSLINGUAL route every 8 hours As needed; 10 tablet; mh7 Refills: 0, Product Selection Permitted - Tessalon Perles 100 mg Oral Capsule - take 1 capsule by ORAL route every 8 hours As needed; 15 capsule; Refills: 0, [facility] Product Selection Permitted - Zithromax Z-Rainer 250 mg Oral Tablet - take 1 tablet by ORAL route as directed for 5 days Day 1 - take two (2) tablets [facility] one time. Day 2, 3, 4 , 5 take one (1) tablet once daily.; 6 tablet; Refills: 0, Product Selection Permitted Signatures: Dispatcher [employer] Riley Nur MD MD [facility] Kiera Salas
--- NOTE | 2021-10-25 00:53 | ER ---
Nurse's Notes [facility] Name: Jovanny Long Age: 51 yrs Sex: Male : 1970 Arrival Date: 10/24/2021 Time: 22:54 Bed 16 [facility] MD: Diagnosis: Other seizures-Possible;Coronavirus infection, unspecified Assessment: 10/25 01:22 Reassessment: See paper charting for assessment/charting. tk1 Vital Signs: 01:00 BP 105 / 68 RA Supine (auto/reg); Pulse 58 MON; Resp 16 S; Temp 98.1; Pulse Ox 97% on tk1 R/A; Pain 0/10; 01:00 Sinus bradycardia tk1 ED Course: 10/24 22:54 Patient arrived in ED. 23:22 Riley Fan MD is Attending Physician. [facility] 10/25 00:03 Missed attempt(s): 22 gauge in right antecubital area. Inserted saline lock: 22 gauge lp1 in right antecubital area, using aseptic technique. 00:51 Vijay Rasmussen MD is Referral Physician. [facility] Administered Medications: No medications were administered Outcome: 00:52 Discharge ordered by . [facility] 01:22 Patient left the ED. tk1 Signatures: Bisi Patrick RN RN lp1 Riley Fan MD MD 7 Kiera Salas Molly Browne tk1 Corrections: (The following items were deleted from the chart) 00:41 00:38 Molly Browne is Primary Nurse. tk1 tk1
[2021-10-25 01:29] VITALS: BP 105/68; TEMP 98.1; O2SAT 97
--- NOTE | 2021-10-26 11:19 | RAD REPORT ---
EXAM DESCRIPTION: CT Angiography Chest With Intravenous Contrast CLINICAL HISTORY: The patient is 51 years old and is Male; COVID; CONGESTION TECHNIQUE: Axial computed tomographic angiography images of the chest with intravenous contrast. S agittal and coronal reformatted images were created and reviewed. This CT exam was performed using one or more of the following dose reduction techniques: automated exposure control, adjustment of t he mA and/or kV according to patient size, and/or use of iterative reconstruction technique. MIP reconstructed images were created and reviewed. COMPARISON: No relevant prior studies available. FINDINGS: PULMONARY ARTERIES: There are no obvious filling defects identified within the pulmonary arteries to suggest pulmonary embolism. AORTA: No acute findings. No thoracic aortic aneurysm. LUNGS: Minimal dependent densities in the lung bases are present. The lungs are otherwise clear. No mass. PLEURAL SPACE: Unremarkable. No significant effusion. No pneumothorax. HEART: Unremarkable. No cardiomegaly. No significant pericardial effusion. No evidence of RV dysfunction. BONES/JOINTS: No acute fracture. No dislocation. SOFT TISSUES: Unremarkable. LYMPH NODES: Unremarkable. No enlarged lymph nodes. IMPRESSION: 1. Findings suggest minimal bibasilar atelectasis. 2. No evidence of pulmonary embolism. Electronically signed by: Shanthi Cooper MD 10/25/2021 12:34 AM [employer] Due to temporary technical issues with the PACS/Fluency reporting system, reports are being signed by the in house radiologist without review as a courtesy to ensure prompt reporting. The interpreting r adiologist is fully responsible for the content of the report.
== END 2021-10-25 01:22 | disposition home or self-care (01) ==
LOC: ER 17:43
DX: R56.9 Unspecified convulsions (principal); U07.1 COVID-19
CPT/HCPCS: 93005; 85025; 80048; 36415; 83735; 82550; 85610; 85730; 84484; 82553; 83880; 70450; 71275; 71045; 99282; U0003; Q9967; J2405